=== PATIENT | female | born 1955 | race Caucasian/White ===

== ENCOUNTER 2017-04-14 17:41 | Inpatient (IN) | payer OTHER ==
[~2017-04-14] VITALS: Ht 152.4 cm; Wt 75.0 kg
[2017-04-14] VITALS (10 sets, daily range): BP systolic 132–183; BP diastolic 75–97; PULSE 71–85; RESP 16–20; TEMP 97.8; O2SAT 94–100
[2017-04-14] MEDS ORDERED: LISI40TA PO (18:26)
[2017-04-14] MEDS ORDERED: HYDR12.56 PO (18:26)
--- NOTE | 2017-04-14 18:55 | PD ---
HPI Chief Complaint: Chest Pain Time Seen by Provider: 18:24 Travel History International Travel<30 days: No Contact w/Intl Traveler<30days: No Traveled to known affect area: No History of Present Illness HPI This patient complains of chest pain. Duration is 12 hours. Severity is moderate. Symptoms are not exertional. She has central sternal pressure and heaviness. No alleviating factors. Symptoms have no exacerbating factors. She denies history of cardiac disease and never had stress testing. [facility]LY [facility] Past Medical History Anxiety: Yes Hypertension: Yes Influenza Vaccination: No Past Surgical History Genitourinary Surgery: Yes (PROLAPSED BLADDER REPAIR) Social History Alcohol Use: No Tobacco Use: No Substance Use: No Allergies-Medications (Allergen,Severity, Reaction): Coded Allergies: erythromycin base (Verified Allergy, Unknown, 04/14/17) Reported Meds & Prescriptions Reported Meds & Active Scripts Active Reported Hydrochlorothiazide 12.5 Mg Tab 12.5 Mg PO DAILY Lisinopril 40 Mg Tab 40 Mg PO DAILY Review of Systems General / Constitutional: No: Fever Eyes: No: Visual changes HENT: No: Headaches Cardiovascular: Positive: Chest Pain or Discomfort Respiratory: No: Shortness of Breath Gastrointestinal: No: Abdominal Pain Genitourinary: No: Dysuria Musculoskeletal: No: Pain Skin: No Rash Neurologic: No: Weakness Psychiatric: Positive: Anxiety, No: Depression Endocrine: No: Polydipsia Hematologic/Lymphatic: No: Easy Bruising Physical Exam Narrative GENERAL: Well-nourished, well-developed patient in no apparent distress. SKIN: Focused skin assessment reveals no rash and nodules. Skin is Warm and dry. HEAD: Atraumatic. Normocephalic. EYES: Pupils equal and round. No scleral icterus. No injection or drainage. ENT: No nasal bleeding or discharge. Mucous membranes pink and moist. NECK: Trachea midline. No JVD. CARDIOVASCULAR: Regular rate and rhythm. No murmur appreciated. RESPIRATORY: No accessory muscle use. Clear to auscultation. Breath sounds equal bilaterally. GASTROINTESTINAL: Abdomen soft, non-tender, nondistended. Hepatic and splenic margins not palpable. MUSCULOSKELETAL: No obvious deformities. No clubbing. No cyanosis. No edema. NEUROLOGICAL: Awake and alert. No obvious cranial nerve deficits. Motor grossly within normal limits. Normal speech. PSYCHIATRIC: Appropriate mood and affect; insight and judgment normal. Data Data Last Documented VS Vital Signs Date Time Temp Pulse Resp B/P (MAP) Pulse Ox O2 Delivery O2 Flow Rate FiO2 04/14/17 18:46 78 18 170/87 (114) 99 Room Air 04/14/17 18:00 97.8 Orders Orders Electrocardiogram (04/14/17 18:53) Basic Metabolic Panel (Bmp) (04/14/17 18:53) Ckmb (Isoenzyme) Profile (04/14/17 18:53) Complete Blood Count With Diff (04/14/17 18:53) Prothrombin Time / Inr (Pt) (04/14/17 18:53) Act Partial Throm Time (Ptt) (04/14/17 18:53) Troponin I (04/14/17 18:53) Chest, Single Ap (04/14/17 18:53) Ecg Monitoring (04/14/17 18:53) Iv Access Insert/Monitor (04/14/17 18:53) Oximetry (04/14/17 18:53) Aspirin (Aspirin) (04/14/17 19:00) Sodium Chloride 0.9% Flush (Ns Flush) (04/14/17 19:00) MDM Medical Decision Making Medical Screen Exam Complete: Yes Emergency Medical Condition: Yes Medical Record Reviewed: Yes Differential Diagnosis Differential diagnosis includes AR, angina, pericarditis, pleurisy, GERD, anxiety. Narrative Course I have reviewed the patient's electronic medical record. I've ordered a chest pain workup I reviewed her EKG which shows sinus rhythm but no ST elevation or ectopy Case checked out to Dr. Dunham. Likely will be a chest pain center patient given her discomfort and history of hypertension Silver Rowland MD Apr 14, 2017 18:55
[2017-04-14] MEDS ORDERED: ASPIRIN 325 MG TAB PO ONE (19:00)
[2017-04-14] MEDS ORDERED: SODIUM CHLORIDE 0.9% FLUSH 10 ML FLUSH IVF PRN ×2 (19:00→21:45)
[2017-04-14 19:26] LABS: AUTOMATED NEUTROPHIL # 8.4 TH/MM3 (1.8-7.7); BASOPHIL # 0.2 TH/MM3 (0-0.2); EOSINOPHIL # 0.1 TH/MM3 (0-0.4); EOSINOPHIL % 0.5 % (0.0-4.0); HEMATOCRIT 38.6 % (35.0-46.0); HEMO FLAGS DIFF FINAL; LYMPHOCYTE # 1.2 TH/MM3 (1.0-4.8); MEAN CELL VOLUME 88.2 FL (80.0-100.0); MEAN CORPUSCULAR HEMOGLOBIN 29.9 PG (27.0-34.0); MEAN CORPUSCULAR HGB CONC 33.9 % (32.0-36.0); MONO % 4.2 % (0.0-8.0); NEUT % 81.3 % (16.0-70.0); PLATELET COUNT 312 TH/MM3 (150-450); RED BLOOD COUNT 4.37 MIL/MM3 (4.00-5.30); RED CELL DISTRIBUTION WIDTH 12.3 % (11.6-17.2); WHITE BLOOD COUNT 10.3 TH/MM3 (4.0-11.0)
[2017-04-14 19:46] LABS: POTASSIUM 3.3 MEQ/L (3.5-5.1)
[2017-04-14 19:51] LABS: APTT (PATIENT) 29.9 SEC (24.3-30.1); PROTHROMBIN TIME - PATIENT 10.9 SEC (9.8-11.6)
[2017-04-14 20:09] LABS: CKMB 47.8 NG/ML (0.5-3.6)
--- NOTE | 2017-04-14 20:10 | RADRPT ---
EXAM DATE/TIME: 04/14/2017 18:59 [place] COMPARISON: No previous studies available for comparison. INDICATIONS : Chest pain. MEDICAL HISTORY : Hypertension. SURGICAL HISTORY : None. ENCOUNTER: Initial ACUITY: 1 day PAIN SCORE: 4/10 LOCATION: chest substernal. FINDINGS: The heart size is normal. There is mild increased density in the right medial base. The left lung dayna ears grossly clear. No effusion is seen. CONCLUSION: Possible mild medial right base consolidation. Sanju Lazar MD on April 14, 2017 at 20:08 Board Certified Radiologist. This report was verified electronically.
[2017-04-14] MEDS ORDERED: HEPARIN-D5W 25,000 U/250 ML 250 ML IV PRN (20:45)
[2017-04-14] MEDS ORDERED: HEPARIN SODIUM - IV 10,000 UNITS/10 ML VIAL IV PUSH ONE (20:45)
[2017-04-14] MEDS: NITROGLYCERIN 0.4 MG SL 25 TABS/BTL SL PRN ×3 (20:51→21:15)
[2017-04-14] MEDS: SODIUM CHLOR 0.9% 1000 ML INJ 1,000 ML IV SCH (20:51)
[2017-04-14 21:06] LABS: HEMATOCRIT 37.9 % (35.0-46.0); MEAN CORPUSCULAR HEMOGLOBIN 30.1 PG (27.0-34.0); MEAN CORPUSCULAR HGB CONC 34.6 % (32.0-36.0); PLATELET COUNT 315 TH/MM3 (150-450); RED BLOOD COUNT 4.36 MIL/MM3 (4.00-5.30); RED CELL DISTRIBUTION WIDTH 12.1 % (11.6-17.2); REVIEW FLAG FINAL; WHITE BLOOD COUNT 11.2 TH/MM3 (4.0-11.0)
[2017-04-14] MEDS ORDERED: NITROGLYCERIN-D5W 50 MG/250 ML 250 ML IV PRN (21:15)
--- NOTE | 2017-04-14 21:16 | PD ---
Physical Exam Date Seen by Provider: Apr 14, 2017 Time Seen by Provider: 19:45 Narrative Accepted in transfer of care from Dr. Rowland Data Data Last Documented VS Vital Signs Date Time Temp Pulse Resp B/P (MAP) Pulse Ox O2 Delivery O2 Flow Rate FiO2 04/14/17 21:20 18 04/14/17 21:00 78 143/75 (97) 94 Room Air 04/14/17 18:00 97.8 Orders Orders Electrocardiogram (04/14/17 18:53) Basic Metabolic Panel (Bmp) (04/14/17 18:53) Ckmb (Isoenzyme) Profile (04/14/17 18:53) Complete Blood Count With Diff (04/14/17 18:53) Prothrombin Time / Inr (Pt) (04/14/17 18:53) Act Partial Throm Time (Ptt) (04/14/17 18:53) Troponin I (04/14/17 18:53) Chest, Single Ap (04/14/17 18:53) Ecg Monitoring (04/14/17 18:53) Iv Access Insert/Monitor (04/14/17 18:53) Oximetry (04/14/17 18:53) Aspirin (Aspirin) (04/14/17 19:00) Sodium Chloride 0.9% Flush (Ns Flush) (04/14/17 19:00) CKMB (04/14/17 19:20) CKMB% (04/14/17 19:20) Nitroglycerin Sl (Nitrostat Sl) (04/14/17 20:45) Heparin Inj (Heparin Inj) (04/14/17 20:45) Heparin Inj (Heparin Inj) (04/15/17 02:45) Heparin Inj (Heparin Inj) (04/15/17 02:45) Heparin-D5w 25,000 U/250 Ml (Heparin-D5w (04/14/17 20:45) Act Partial Throm Time (Ptt) (04/14/17 20:36) Cbc No Diff, Includes Plts (04/14/17 20:36) Cbc No Diff, Includes Plts (04/17/17 06:00) Act Partial Throm Time (Ptt) (04/15/17 03:36) Occult Blood (Hemoccult) Stool (04/14/17 20:36) Sodium Chlor 0.9% 1000 Ml Inj (Ns 1000 M (04/14/17 20:45) NPO (04/14/17 20:38) Nitroglycerin-D5w 50 Mg/250 Ml (Nitrogly (04/14/17 21:15) Potassium Chloride (Kcl) (04/14/17 21:30) Admit To Inpatient (04/14/17 ) Vital Signs (Adult) Q4H (04/14/17 21:35) Manager Banking / Telemetry .CONTINUOUS (04/14/17 21:35) Diet Npo (04/15/17 Breakfast) Sodium Chloride 0.9% Flush (Ns Flush) (04/14/17 21:45) Sodium Chloride 0.9% Flush (Ns Flush) (04/15/17 09:00) Basic Metabolic Panel (Bmp) (04/15/17 06:00) Complete Blood Count With Diff (04/15/17 06:00) Creatine Kinase (Cpk) (04/15/17 01:00) Creatine Kinase (Cpk) (04/15/17 07:00) Troponin I (04/15/17 01:00) Troponin I (04/15/17 07:00) Electrocardiogram (04/15/17 01:00) Electrocardiogram (04/15/17 07:00) Naloxone Inj (Narcan Inj) (04/14/17 21:45) Inpatient Certification (04/14/17 ) Consult Cardiology (04/14/17 ) Admit Order (Ed Use Only) (04/14/17 ) ^ Saline Lock (04/14/17 21:44) Resp Oxygen Aric C Titrat 1-4 L (04/14/17 ) Notify Dr: Other (04/14/17 21:44) CKMB (04/15/17 00:37) CKMB% (04/15/17 00:37) Labs Laboratory Tests Test 04/14/17 19:20 04/14/17 20:47 White Blood Count 10.3 TH/MM3 11.2 TH/MM3 Red Blood Count 4.37 MIL/MM3 4.36 MIL/MM3 Hemoglobin 13.1 GM/DL 13.1 GM/DL Hematocrit 38.6 % 37.9 % Mean Corpuscular Volume 88.2 FL 87.0 FL Mean Corpuscular Hemoglobin 29.9 PG 30.1 PG Mean Corpuscular Hemoglobin Concent 33.9 % 34.6 % Red Cell Distribution Width 12.3 % 12.1 % Platelet Count 312 TH/MM3 315 TH/MM3 Mean Platelet Volume 7.6 FL 7.7 FL Neutrophils (%) (Auto) 81.3 % Lymphocytes (%) (Auto) 12.0 % Monocytes (%) (Auto) 4.2 % Eosinophils (%) (Auto) 0.5 % Basophils (%) (Auto) 2.0 % Neutrophils # (Auto) 8.4 TH/MM3 Lymphocytes # (Auto) 1.2 TH/MM3 Monocytes # (Auto) 0.4 TH/MM3 Eosinophils # (Auto) 0.1 TH/MM3 Basophils # (Auto) 0.2 TH/MM3 CBC Comment DIFF FINAL Differential Comment Prothrombin Time 10.9 SEC Prothromb Time International Ratio 1.0 RATIO Activated Partial Thromboplast Time 29.9 SEC 30.3 SEC Blood Urea Nitrogen 9 MG/DL Creatinine 0.57 MG/DL Random Glucose 95 MG/DL Calcium Level 8.1 MG/DL Sodium Level 134 MEQ/L Potassium Level 3.3 MEQ/L Chloride Level 99 MEQ/L Carbon Dioxide Level 26.0 MEQ/L Anion Gap 9 MEQ/L Estimat Glomerular Filtration Rate 107 ML/MIN Total Creatine Kinase 360 U/L Creatine Kinase MB 47.8 NG/ML Creatine Kinase MB % 13.3 % Troponin I 7.58 NG/ML [facility] Medical Record Reviewed: Yes Supervised Visit with DAMION: No Interpretation(s) EKG normal sinus rhythm rate 86 septal infarction QS in V1 V2 no acute ST elevation or injury pattern change or ectopy noted CBC & BMP Diagram 04/14/17 19:20 Calcium Level 8.1 L 04/14/17 20:47 Vital Signs Date Time Temp Pulse Resp B/P (MAP) Pulse Ox O2 Delivery O2 Flow Rate FiO2 04/14/17 19:58 82 20 154/88 (110) 100 04/14/17 19:00 82 20 100 04/14/17 18:46 78 18 170/87 (114) 99 Room Air 04/14/17 18:00 97.8 74 16 183/84 (117) 98 CK total 360, elevated CK-MB percent 13.3% elevated; troponin I 7.58 elevated Coagulation studies normal range CXR: FINDINGS: The heart size is normal. There is mild increased density in the right medial base. The left lung appears grossly clear. No effusion is seen. CONCLUSION: Possible mild medial right base consolidation. Sanju Lazar MD on April 14, 2017 at 20:08 Board Certified Radiologist. This report was verified electronically. Differential Diagnosis Accepted in transfer of care from Dr. Rowland, please refer to his dictation Narrative Course Accepted in transfer of care from Dr. Rowland;waitng on labs rec --educational program assistant candidate Trop and ckmb% elevated c/w [facility] patient c/o 8/10 cp administered nitro sublingual and heparin had received aspirin; ongoing pain initiated ntg infusion and discussed with cardiology --- cic to [facility] service card consult GENERAL: Well-developed well-nourished female in no acute distress or respiratory distress SKIN: Warm and dry. HEAD: Normocephalic. EYES: No scleral icterus. No injection or drainage. NECK: Supple, trachea midline. No JVD or lymphadenopathy. CARDIOVASCULAR: Regular rate and rhythm without murmurs, gallops, or rubs. RESPIRATORY: Breath sounds equal bilaterally. No accessory muscle use. GASTROINTESTINAL: Abdomen soft, non-tender, nondistended. MUSCULOSKELETAL: No cyanosis, or edema. Radial dorsalis pedis pulses 2+ to palpation BACK: Nontender without obvious deformity. No CVA tenderness. Good pain relief response to IV NTG resting comfortably Patient admit to [facility] to Dr Wasserman --consult to [place] Physician Communication Physician Communication discussed with Dr Marcano junior art director; discussed with Dr Wasserman Diagnosis Primary Impression: NSTEMI (non-ST elevated myocardial infarction) Additional Impression: HTN (hypertension) Admitting Information Admitting Physician Requests: Admit Lovely Dunham MD Apr 14, 2017 21:16
[2017-04-14] MEDS ORDERED: POTASSIUM CHLORIDE 20 MEQ CONTROLLED RELEASE TAB PO ONE (21:30)
[2017-04-14] MEDS ORDERED: NALOXONE HCL 0.4 MG/ML AMP IV PUSH PRN (21:45)
[2017-04-14] MEDS ORDERED: SODIUM CHLORIDE 0.9% FLUSH 10 ML FLUSH IV FLUSH PRN (21:45)
[2017-04-14 22:02] LABS: APTT (PATIENT) 30.3 SEC (24.3-30.1)
[2017-04-15] VITALS (18 sets, daily range): BP systolic 122–143; BP diastolic 60–81; PULSE 64–95; RESP 18–20; TEMP 97.7–98.5; O2SAT 95–97
[2017-04-15] MEDS ORDERED: MORPHINE SULFATE 4 MG/ML INJ IV PUSH ONE (01:30)
[2017-04-15] MEDS ORDERED: ONDANSETRON HCL 4 MG/2 ML VIAL IV PUSH ONE (01:30)
[2017-04-15] MEDS ORDERED: HEPARIN SODIUM - IV 10,000 UNITS/10 ML VIAL IV PUSH PRN ×2 (02:45)
--- NOTE | 2017-04-15 03:30 | HHI.HP ---
[facility] Primary Care Physician Non-Staff Admission Diagnosis NSTEMI Diagnoses: Travel History International Travel<30 Days: No Contact w/Intl Traveler <30 Da: No Traveled to Known Affected Are: No History of Present Illness History from patient, ER physician communication, and review of medical records. Patient reported that yesterday she woke up in a.m. and started having chest pain early in the morning. She states the pain did not go away as the day goes on. She reports this was the reason why she came to hospital. Reports midsternal pain with feeling like "3 tons on it". Denies any radiation of the pain or association. Reports she never had similar chest pains previously. She was given nitroglycerin in ER but states that the pain was not really going away despite repeated doses. This was also confirmed by ER physician. She was then placed on nitro drip with much less success. Finally, morphine IV was given and that somewhat relieved her pain. She reports because of the above chest pains, she actually drove herself to the hospital today. Did not call an ambulance. She states childbirth hurts less. She patient denies any recent prolonged travels. Her last travel was on March 29 by air to [place] from [place]. About 2 hours by plane. Patient initially presented to [place] emergency room. Workup there revealed elevated troponin in the range of 7.5. Patient's case was discussed with insole presser information security systems instructor by ER physician. She was started on heparin drip and nitroglycerin drip and transferred to the main hospital for further care. Apart from the above, patient denies any recent fever/cough/shortness of breath/ nausea/vomiting/diarrhea/urinary burning or pain on urination. She denies any hematemesis/hematochezia/melena/hematuria. Denies any dizziness/syncopal episodes. Review of Systems Except as stated in HPI: all other systems reviewed are Neg Past Family Social History Past Medical History htn Past Surgical History cystocele repair vocal cord polyps removed wisdom teeth Reported Medications remembers her meds Allergies: Coded Allergies: erythromycin base (Verified Allergy, Unknown, 04/14/17) Family History father- heart problem and dm paternal grandmother- also cad, dm Social History never smoked social drinker no drugs just visiting here from [facility] for mom and brother Physical Exam Vital Signs Vital Signs Date Time Temp Pulse Resp B/P (MAP) Pulse Ox O2 Delivery O2 Flow Rate FiO2 04/15/17 02:37 70 16 125/68 (87) 95 04/15/17 00:27 18 04/15/17 00:22 72 132/79 04/14/17 23:50 71 18 132/79 (96) 94 Room Air 04/14/17 22:00 74 18 143/75 (97) 95 Room Air 04/14/17 21:57 97 21 04/14/17 21:20 18 04/14/17 21:00 78 18 143/75 (97) 94 Room Air 04/14/17 20:55 85 20 150/81 (104) 94 Room Air 04/14/17 20:49 78 20 159/91 (113) 95 Room Air 04/14/17 20:37 74 20 170/97 (121) 98 Room Air 174/92 (119) 04/14/17 19:58 82 20 154/88 (110) 100 04/14/17 19:00 82 20 100 04/14/17 18:46 78 18 170/87 (114) 99 Room Air 04/14/17 18:00 97.8 74 16 183/84 (117) 98 Physical Exam GENERAL: This is a well-nourished, well-developed patient, in no apparent distress. SKIN: No rashes, ecchymoses or lesions. Cool and dry. HEAD: Atraumatic. Normocephalic. No temporal or scalp tenderness. EYES: No scleral icterus. No injection or drainage. ENT: Nose without bleeding, purulent drainage or septal hematoma. . Airway patent. NECK: Trachea midline. No JVD CARDIOVASCULAR: Regular rate and rhythm without murmurs, gallops, or rubs. RESPIRATORY: Clear to auscultation. Breath sounds equal bilaterally. No wheezes , rales, or rhonchi. GASTROINTESTINAL: Abdomen soft, non-tender, nondistended. No guarding. MUSCULOSKELETAL: Extremities without clubbing, cyanosis, or edema.. No calf tenderness. NEUROLOGICAL: Awake and alert. Motor and sensory grossly within normal limits. Normal speech. Laboratory Laboratory Tests Test 04/14/17 19:20 04/14/17 20:47 04/15/17 00:37 White Blood Count 10.3 11.2 Red Blood Count 4.37 4.36 Hemoglobin 13.1 13.1 Hematocrit 38.6 37.9 Mean Corpuscular Volume 88.2 87.0 Mean Corpuscular Hemoglobin 29.9 30.1 Mean Corpuscular Hemoglobin Concent 33.9 34.6 Red Cell Distribution Width 12.3 12.1 Platelet Count 312 315 Mean Platelet Volume 7.6 7.7 Neutrophils (%) (Auto) 81.3 Lymphocytes (%) (Auto) 12.0 Monocytes (%) (Auto) 4.2 Eosinophils (%) (Auto) 0.5 Basophils (%) (Auto) 2.0 Neutrophils # (Auto) 8.4 Lymphocytes # (Auto) 1.2 Monocytes # (Auto) 0.4 Eosinophils # (Auto) 0.1 Basophils # (Auto) 0.2 CBC Comment DIFF FINAL Differential Comment Prothrombin Time 10.9 Prothromb Time International Ratio 1.0 Activated Partial Thromboplast Time 29.9 30.3 Blood Urea Nitrogen 9 Creatinine 0.57 Random Glucose 95 Calcium Level 8.1 Sodium Level 134 Potassium Level 3.3 Chloride Level 99 Carbon Dioxide Level 26.0 Anion Gap 9 Estimat Glomerular Filtration Rate 107 Total Creatine Kinase 360 486 Creatine Kinase MB 47.8 63.0 Creatine Kinase MB % 13.3 13.0 Troponin I 7.58 12.20 Result Diagram: 04/14/17204604/14/171919 Imaging Last 48 hours Impressions Chest X-Ray 04/14/171852 Signed Impressions: Service Date/Time: Friday, April 14, 2017 18:59 - CONCLUSION: Possible mild medial right base consolidation. Sanju Lazar MD Caprini VTE Risk Assessment Caprini VTE Risk Assessment: Mod/High Risk (score >= 2) Caprini Risk Assessment Model Point Value = 1 Point Value = 2 Point Value = 3 Point Value = 5 Age 41-60 Minor surgery BMI > 25 kg/m2 Swollen legs Varicose veins or History of unexplained or recurrent spontaneous Oral contraceptives or hormone replacement Sepsis (< 1 month) Serious lung disease, including pneumonia (< 1 month) Abnormal pulmonary function Acute myocardial infarction Congestive heart failure (< 1 month) History of inflammatory bowel disease Medical patient at bed rest Age 61-74 Arthroscopic surgery Major open surgery (> 45 min) Laparoscopic surgery (> 45 min) Malignancy Confined to bed (> 72 hours) Immobilizing plaster cast Central venous access Age >= 75 History of VTE Family history of VTE Factor V Leiden Prothrombin [id number] Lupus anticoagulant Anticardiolipin antibodies Elevated serum homocysteine Heparin-induced thrombocytopenia Other congenital or acquired thrombophilia Stroke (< 1 month) Elective arthroplasty Hip, pelvis, or leg fracture Acute spinal cord injury (< 1 month) Prophylaxis Regimen Total Risk Factor Score Risk Level Prophylaxis Regimen 0-1 Low Early ambulation 2 Moderate Order ONE of the following: *Sequential Compression Device (SCD) *Heparin 5000 units SQ BID 3-4 Higher Order ONE of the following medications: *Heparin 5000 units SQ TID *Enoxaparin/Lovenox 40 mg SQ daily (WT < 150 kg, CrCl > 30 mL/min) *Enoxaparin/Lovenox 30 mg SQ daily (WT < 150 kg, CrCl > 10-29 mL/min) *Enoxaparin/Lovenox 30 mg SQ BID (WT < 150 kg, CrCl > 30 mL/min) AND/OR *Sequential Compression Device (SCD) 5 or more Highest Order ONE of the following medications: *Heparin 5000 units SQ TID (Preferred with Epidurals) *Enoxaparin/Lovenox 40 mg SQ daily (WT < 150 kg, CrCl > 30 mL/min) *Enoxaparin/Lovenox 30 mg SQ daily (WT < 150 kg, CrCl > 10-29 mL/min) *Enoxaparin/Lovenox 30 mg SQ BID (WT < 150 kg, CrCl > 30 mL/min) AND *Sequential Compression Device (SCD) Assessment and Plan Assessment and Plan Impression: Non-ST elevation ND Dyspnea- related to chest pain per patient's report. Clinical suspicion for PE is low. We'll check d-dimer. History of hypertension Plan: Serial cardiac enzymes and EKGs. Continue nitro drip. Titrate to chest pain level. Continue heparin drip. Cardiology consult Nothing by mouth for angiogram in a.m. For now, will hold home antihypertensive medications as she is on nitro drip. Aspirin full dose. DVT prophylaxis on heparin drip. Discussed Condition With patient, ER MD , nursing staff Physician Certification 2 Midnight Certification Type: Admission for Inpatient Services Order for Inpatient Services The services are ordered in accordance with Medicare regulations or non- Medicare payer requirements, as applicable. In the case of services not specified as inpatient-only, they are appropriately provided as inpatient services in accordance with the 2-midnight benchmark. Estimated LOS (days): 2 days is the estimated time the patient will need to remain in the hospital, assuming treatment plan goals are met and no additional complications. Post-Hospital Plan: Home Natan Wasserman MD Apr 15, 2017 03:30
[2017-04-15 04:13] LABS: APTT (PATIENT) 78.1 SEC (24.3-30.1)
[2017-04-15 04:31] LABS: BICARBONATE 26.5 MEQ/L (21.0-32.0); POTASSIUM 3.5 MEQ/L (3.5-5.1)
[2017-04-15] MEDS: MORPHINE SULFATE 4 MG/ML INJ IV PUSH PRN ×2 (05:19→08:08)
[2017-04-15] MEDS: SODIUM CHLORIDE 0.9% FLUSH 10 ML FLUSH IV FLUSH SCH ×2 (08:10→21:51)
--- NOTE | 2017-04-15 08:15 | EKG ---
Date Performed: 04/14/2017 Time Performed: 17:35:51 PTAGE: 61 years EKG: Sinus rhythm SEPTAL MYOCARDIAL INFARCTION ABNORMAL ECG NO PREVIOUS TRACING DOCTOR: Marva Ho Interpretating Date/Time 04/15/2017 08:12:16
--- NOTE | 2017-04-15 08:17 | EKG ---
Date Performed: 04/15/2017 Time Performed: 01:16:26 PTAGE: 61 years EKG: Sinus rhythm NONSPECIFIC T-WAVE Changes Baseline Artifact BORDERLINE ECG PREVIOUS TRACING : 04/14/2017 17.35 Compared to prior EKG, patient no longer meets criteria for septal myocardial infarction - age indeterminate. DOCTOR: Marva Ho Interpretating Date/Time 04/15/2017 08:14:01
[2017-04-15] MEDS: SODIUM CHLOR 0.9% 1000 ML INJ 1,000 ML IV SCH ×2 (08:25→22:00)
[2017-04-15] MEDS ORDERED: SODIUM CHLORIDE 0.9% FLUSH 10 ML FLUSH IV FLUSH SCH (09:00)
[2017-04-15] MEDS ORDERED: HEPARIN-NS/PF INJ 1,000 ML ONE (09:10)
[2017-04-15] MEDS ORDERED: MIDAZOLAM HCL 2 MG/2 ML VIAL ONE (09:10)
[2017-04-15] MEDS ORDERED: VERAPAMIL HCL 5 MG/2 ML VIAL ONE (09:13)
[2017-04-15] MEDS ORDERED: NITROGLYCERIN INJ 5 ML ONE (09:13)
[2017-04-15] MEDS ORDERED: HEPARIN SODIUM - IV 10,000 UNITS/10 ML VIAL ONE (09:13)
--- NOTE | 2017-04-15 09:21 | MB ---
cc: JUAN PRABHAKAR DO DATE OF CONSULTATION April 15, 2017 REASON FOR CONSULTATION NSTEMI. HISTORY OF PRESENT ILLNESS Zoey Bullock is a pleasant 61-year-old female who presented to [facility] on April 14, 2017, due to chest pain. She is down from [place] visiting her mother and woke up yesterday morning with pain in the center of her chest. It felt like she had an elephant sitting on her chest. It does not seem to radiate. She has never had this episode before. She states that her breathing has been somewhat off since having it. In seeing her this morning she is currently on a heparin drip and a nitroglycerin drip which has been titrated up due to chest pain. PAST MEDICAL HISTORY Hypertension. PAST SURGICAL HISTORY 1. Cystocele repair. 2. Vocal cord polyp removed. 3. [place] tooth removal. ALLERGIES ERYTHROMYCIN. MEDICATIONS 1. Lisinopril 40 mg daily. 2. Hydrochlorothiazide 12.5 mg daily. SOCIAL HISTORY The patient drinks socially. Denies tobacco or drug abuse. She lives in [place] but visiting her mother here. FAMILY HISTORY Father had a history of heart problems and diabetes. Denies sudden cardiac within the family. REVIEW OF SYSTEMS 14-systems were reviewed including osteopathic pertinent positives and negatives above, otherwise negative. PHYSICAL EXAMINATION VITAL SIGNS: Temperature 97.7, heart rate 64, blood pressure 104/57, respirations 16, pulse ox 95% on room air. GENERAL: The patient appears well, in no acute distress, alert, awake and oriented x 3. Extraocular muscles intact. Mucous membranes moist. NECK: Supple. No JVD at 45 degrees. No carotid bruits heard bilaterally. Carotid upstroke is brisk in nature. HEART: Regular rate and rhythm. Positive first and second heart sounds with no noted murmurs, gallops or rubs. LUNGS: Clear to auscultation bilaterally. No wheezes, rales or rhonchi. ABDOMEN: Soft, nontender, nondistended. No organomegaly noted. EXTREMITIES: Show no clubbing, cyanosis or edema. Femoral and distal pulses intact bilaterally. NEUROLOGICALLY: No focal deficits. SKIN: Warm, dry and intact. OSTEOPATHICALLY: No kyphoscoliosis, lordosis or paraspinal tender points. LABORATORY FINDINGS Hemoglobin 13.1, hematocrit 37.9, platelets 315. Potassium 3.5, BUN 8, creatinine 0.58. Troponin 12.2. ELECTROCARDIOGRAM (April 15, 2017 at 06:35) Sinus rhythm, no acute ST-T wave changes. IMPRESSIONS 1. Chest pain concerning for coronary insufficiency. 2. NSTEMI. 3. History of hypertension. RECOMMENDATIONS 1. Zoey Bullock appears to be presenting with chest pain concerning for coronary insufficiency and was found to have an elevated troponin. Because of this she was recommended cardiac catheterization. Risks, benefits and alternatives were explained to her and she consented as such. We will plan on doing it this morning from a right radial standpoint. 2. We will check a 2-D echo to look at her overall left ventricular function, cardiac structure and possible valvopathies. 3. Further recommendations will be made after coronary visualization. Thank you for allowing me to see Zoey Bullock. If there are any questions, please do not hesitate to call. Juan Prabhakar DO VGP/SSB /9:00 AM /9:08 AM
[2017-04-15] MEDS ORDERED: ASPIRIN EC 325 MG TABEC PO ONE (10:00)
[2017-04-15] MEDS ORDERED: HEPARIN-NS/PF INJ 500 ML ONE (10:11)
[2017-04-15] MEDS ORDERED: TICAGRELOR 90 MG TAB PO ONE ×2 (10:33→11:12)
[2017-04-15] MEDS ORDERED: ASPIRIN 81 MG CHEW TAB ONE (10:33)
[2017-04-15] MEDS ORDERED: ATROPINE SULFATE 1 MG/ML VIAL IV PUSH PRN (10:45)
[2017-04-15] MEDS ORDERED: MISC INFORMATION XX ONE (10:45)
[2017-04-15] MEDS ORDERED: oxyCODONE/ACETAMINOPHEN 10 MG/325 MG TAB PO PRN (10:45)
[2017-04-15] MEDS ORDERED: SODIUM CHLOR 0.9% 250 ML INJ 250 ML IV PRN (10:45)
[2017-04-15] MEDS ORDERED: ACETAMINOPHEN 325 MG TAB PO PRN (10:45)
[2017-04-15] MEDS ORDERED: oxyCODONE/ACETAMINOPHEN 5 MG/325 MG TAB PO PRN (10:45)
[2017-04-15] MEDS ORDERED: MORPHINE SULFATE 4 MG/ML INJ IV PUSH PRN (10:45)
--- NOTE | 2017-04-15 11:09 | MA ---
cc: JUAN PRABHAKAR DO DATE 04/15/2017 PROCEDURE Left heart catheterization, coronary angiogram, bare metal stent (2 x 15) to the diagonal, moderate sedation 60 minutes. PREPROCEDURE DIAGNOSIS Chest pain concerning for coronary insufficiency ([place] anginal score four), NSTEMI POSTPROCEDURE DIAGNOSIS NSTEMI status post bare metal stent (2 x 15) to the diagonal MEDICATIONS 1. Versed 0.5 mg 2. Fentanyl 75 mcg 3. Heparin 50-100 units 4. Brilinta 180 mg 5. Aspirin 81 mg CONTRAST 125 cc FLUOROSCOPY 9.6 minutes MODERATE SEDATION 60 minutes ESTIMATED BLOOD LOSS 10 CC PROCEDURAL SUMMARY Zoey Bullock is a pleasant 61-year-old female who presented to [facility] due to chest pain. She was found to have an elevated troponin and recommended cardiac catheterization. The risks, benefits and alternatives were explained to her and she consented as such. She was brought to the lab and prepped in the usual sterile fashion. I attempted to access to right radial artery, but was unable to and this was aborted due to spasm. The right femoral artery was accessed using a micro puncture needle and modified Seldinger technique and placement of a 5-Fijian sheath. This was easily aspirated and flushed. A JR-4 was advanced to the ascending aorta and across the aortic valve for measurement of left ventricular pressure. This was pulled back across the aortic valve showing no significant gradient of aortic stenosis. JR-4 was used for selective angiography of the right coronary artery. This was exchanged out for a JL-4 which was used for selective angiography of the left coronary artery. Because of the significant disease in the diagonal, it was felt that this needed to be intervened on. Please see interventional notes below for further information. Postprocedure, femoral sheath was sewn in place with a plan to pull once ACTs were appropriate. Nitro drip was turned off. The patient left the carpenter labor supervisor cardiovascularly stable. FINDINGS Left main normal sized vessel with adequate reflux. 10% disease at the distal portion. Bifurcates into an LAD and circumflex. LAD normal-size vessel with mild tortuosity distally, 20-30% diffuse distally. It gives off three major diagonals with the first diagonal being subtotally occluded. Left circumflex is a normal sized vessel, nondominant in nature. It gives off one major obtuse marginal with 10-20% disease in the midportion. RCA normal-size vessel, dominant in nature. 30-40% lesion in the proximal portion at the initial bend. LVEDP 16. INTERVENTION The patient was given heparin as an additional anticoagulant. An EBU 3.5 catheter was engaged in the left main. A BMW wire was then advanced into the distal diagonal. A Compliant balloon (1.5 x 8) was then inflated over the lesion. This was exchanged out for a mini Vision bare metal stent (2 x 15) which was then inflated over the lesion. A noncompliant balloon (2 x 12) was then used to post dilate the stent. The wire was removed and final angiography shows a well opposed stent with no perforations or dissections. IMPRESSION 1. NSTEMI 1. Chest pain concerning for coronary insufficiency. 2. Coronary artery disease status post bare metal stent (2 x 15) to the diagonal. 3. History of hypertension. RECOMMENDATIONS 1. Ms. Bullock presented with an NSTEMI and was found to have significant disease in her diagonal and underwent stenting with a bare metal stent. She will be placed on aspirin and Brilinta therapy and this should be recommended for least 12 months as she presented with an NSTEMI. 2. We will check a 2-D echo to look at her overall left ventricular function, cardiac structure and possible valvopathies. 3. We will plan for her to stay in the hospital for 48 hours after initial admission due to her NSTEMI. 4. We will attempt to place her on beta lashell, statin and DONIS inhibitor therapy. 5. Upon returning back to [place], she should find a mapping supervisor to follow up with. 6. Further recommendations will be based on the hospital course. Thank you for allowing me to see Zoey Bullock. If there are any questions, please do not hesitate to call. Juan Prabhakar DO VGP/DJL /10:41 AM /10:58 AM
[2017-04-15] MEDS ORDERED: IOHEXOL 350 MG/ML 100 ML BTL (for Cath Lab) OTHER ONE (13:33)
[2017-04-15] MEDS ORDERED: IOHEXOL 350 MG/ML 50 ML BTL (for Cath Lab) OTHER ONE (13:33)
[2017-04-15 14:49] LABS: AUTOMATED NEUTROPHIL # 9.6 TH/MM3 (1.8-7.7); BASOPHIL % 0.2 % (0.0-2.0); EOSINOPHIL % 0.2 % (0.0-4.0); HEMATOCRIT 34.8 % (35.0-46.0); HEMO FLAGS DIFF FINAL; LYMPH % 9.2 % (9.0-44.0); MEAN CORPUSCULAR HEMOGLOBIN 30.1 PG (27.0-34.0); MEAN CORPUSCULAR HGB CONC 33.8 % (32.0-36.0); MONO % 5.9 % (0.0-8.0); NEUT % 84.5 % (16.0-70.0); PLATELET COUNT 281 TH/MM3 (150-450); RED BLOOD COUNT 3.91 MIL/MM3 (4.00-5.30); RED CELL DISTRIBUTION WIDTH 13.1 % (11.6-17.2); WHITE BLOOD COUNT 11.3 TH/MM3 (4.0-11.0)
[2017-04-15 14:54] LABS: APTT (PATIENT) 39.9 SEC (24.3-30.1)
[2017-04-15 15:44] LABS: CKMB 51.1 NG/ML (0.5-3.6)
[2017-04-15] MEDS: ONDANSETRON HCL 4 MG/2 ML VIAL IV PUSH PRN ×2 (16:00→21:54)
--- NOTE | 2017-04-15 16:43 | EKG ---
Date Performed: 04/15/2017 Time Performed: 06:35:32 PTAGE: 61 years EKG: Sinus rhythm . Compared to prior tracing no significant change Normal ECG PREVIOUS TRACING : 04/15/2017 01.16 DOCTOR: Marva Ho Interpretating Date/Time 04/15/2017 16:40:24
--- NOTE | 2017-04-15 18:02 | ECHRPT ---
Indication: CORONARY ATHEROSCLEROSIS CONCLUSIONS The left ventricular systolic function is normal with an estimated ejection fraction in the range of 55-60%. Doppler parameters are consistent with impaired left ventricular relaxtion (grade 1 diastolic dysfun ction). Mild mitral valve regurgitation. There is trace tricuspid valve regurgitation. BP: 134 / 68 HR: Rhythm: Sinus MEASUREMENTS (Male / Female) Normal Values Technical Quality:Fair 2D ECHO LV Diastolic Diameter PLAX 4.8 cm 4.2 - 5.9 / 3.9 - 5.3 cm LV Systolic Diameter PLAX 3.4 cm IVS Diastolic Thickness 0.8 cm 0.6 - 1.0 / 0.6 - 0.9 cm LVPW Diastolic Thickness 0.8 cm 0.6 - 1.0 / 0.6 - 0.9 cm LV Relative Wall Thickness 0.3 LVOT Diameter 2.1 cm Aortic Root Diameter 2.8 cm LA Systolic Diameter LX 2.8 cm 3.0 - 4.0 / 2.7 - 3.8 cm M-MODE AV Cusp Separation MM 2.0 cm DOPPLER AV Peak Velocity 109.0 cm/s AV Peak Gradient 4.8 mmHg AV Mean Gradient 3.0 mmHg AV Velocity Time Integral 24.7 cm LVOT Peak Velocity 80.5 cm/s LVOT Peak Gradient 2.6 mmHg LVOT Velocity Time Integral 17.6 cm AV Area Cont Eq vti 2.5 cm AV Area Cont Eq pk 2.6 cm Mitral E Point Velocity 79.0 cm/s Mitral A Point Velocity 104.0 cm/s Mitral E to A Ratio 0.8 LV E' Lateral Velocity 12.9 cm/s Mitral E to LV E' Lateral Ratio 6.1 LV E' Septal Velocity 8.8 cm/s Mitral E to LV E' Septal Ratio 9.0 TR Peak Velocity 315.0 cm/s TR Peak Gradient 39.7 mmHg Right Atrial Pressure 10.0 mmHg Pulmonary Artery Systolic Pressu 49.7 mmHg Right Ventricular Systolic Press 49.7 mmHg PV Peak Velocity 54.1 cm/s PV Peak Gradient 1.2 mmHg FINDINGS LEFT VENTRICLE Normal left ventricular size. Wall thickness is normal. The left ventricular systolic function is normal with an estimated ejection fraction in the range of 55-60%. Hypokinetic mid-anterolateral wall motion. Doppler parameters are consistent with impaired left ventricular relaxtion (grade 1 diastolic dysfun ction). RIGHT VENTRICLE The right ventricular size is normal. LEFT ATRIUM The left atrial size is mildly dilated. RIGHT ATRIUM The right atrial size is normal. ATRIAL SEPTUM The interatrial septum not well visualized. AORTA The aortic root and proximal ascending aorta are normal in size on limited imaging. MITRAL VALVE Structurally normal mitral valve. Mild mitral valve regurgitation. No mitral valve stenosis. AORTIC VALVE Trileaflet aortic valve. No aortic valve stenosis. No aortic valve regurgitation. TRICUSPID VALVE There is trace tricuspid valve regurgitation. There is estimated moderate pulmonary hypertension present (range 50-60 mmHg). Structurally normal tricuspid valve. PULMONARY VALVE The pulmonary valve is not well visualized. VESSELS The inferior vena cava is normal in size. PERICARDIUM No pericardial effusion. Juan Frederick DO (Electronically Signed) Final Date:15 April 2017 18:01
[2017-04-15] MEDS: ATORVASTATIN 80 MG TAB PO SCH (21:51)
[2017-04-15] MEDS: METOPROLOL TARTRATE 25 MG TAB PO SCH (21:51)
[2017-04-16] VITALS (28 sets, daily range): BP systolic 124–156; BP diastolic 68–75; PULSE 60–96; RESP 18; TEMP 98–98.4; O2SAT 96–97
[2017-04-16 07:00] LABS: AUTOMATED NEUTROPHIL # 7.6 TH/MM3 (1.8-7.7); BASOPHIL % 0.4 % (0.0-2.0); EOSINOPHIL # 0.1 TH/MM3 (0-0.4); EOSINOPHIL % 0.9 % (0.0-4.0); HEMATOCRIT 33.1 % (35.0-46.0); HEMO FLAGS DIFF FINAL; LYMPH % 12.9 % (9.0-44.0); LYMPHOCYTE # 1.3 TH/MM3 (1.0-4.8); MEAN CORPUSCULAR HEMOGLOBIN 30.3 PG (27.0-34.0); MONO % 8.2 % (0.0-8.0); NEUT % 77.6 % (16.0-70.0); PLATELET COUNT 239 TH/MM3 (150-450); RED BLOOD COUNT 3.72 MIL/MM3 (4.00-5.30); RED CELL DISTRIBUTION WIDTH 13.3 % (11.6-17.2); WHITE BLOOD COUNT 9.7 TH/MM3 (4.0-11.0)
[2017-04-16 07:17] LABS: BICARBONATE 22.7 MEQ/L (21.0-32.0); POTASSIUM 3.6 MEQ/L (3.5-5.1)
[2017-04-16 07:21] LABS: HDL CHOLESTEROL 59.2 MG/DL (40.0-60.0)
[2017-04-16] MEDS: SODIUM CHLORIDE 0.9% FLUSH 10 ML FLUSH IV FLUSH SCH ×2 (09:00→20:48)
[2017-04-16] MEDS ORDERED: LISINOPRIL 5 MG TAB PO SCH (09:00)
[2017-04-16] MEDS ORDERED: ASPIRIN EC 325 MG TABEC PO SCH (09:00)
[2017-04-16] MEDS: ASPIRIN 81 MG CHEW TAB PO SCH (09:10)
[2017-04-16] MEDS: TICAGRELOR 90 MG TAB PO SCH ×2 (09:11→20:47)
[2017-04-16] MEDS: METOPROLOL TARTRATE 25 MG TAB PO SCH ×2 (09:11→20:47)
--- NOTE | 2017-04-16 09:56 | PD.CARD.PN ---
Subjective Subjective Remarks No events overnight No longer nauseated No chest pain Mild SOB Objective Medications Current Medications Medications (Trade) Dose Ordered Sig/Nelli Route Start Time Stop Time Status Last Admin (Nitrostat Sl) 0.4 mg Q5M PRN SL 04/14/17 20:45 04/14/17 21:15 (NS Flush) 2 ml UNSCH PRN IV FLUSH 04/14/17 21:45 (NS Flush) 2 ml BID IV FLUSH 04/15/17 09:00 04/15/17 21:51 (Narcan Inj) 0.4 mg UNSCH PRN IV PUSH 04/14/17 21:45 (Morphine Inj) 1 mg Q3H PRN IV PUSH 04/15/17 03:45 04/15/17 08:08 (Tylenol) 325 mg Q4H PRN PO 04/15/17 10:45 (Percocet 5-325 Mg) 1 tab Q4H PRN PO 04/15/17 10:45 (Percocet 10-325 Mg) 1 tab Q4H PRN PO 04/15/17 10:45 (Morphine Inj) 2 mg Q30M PRN IV PUSH 04/15/17 10:45 04/15/17 11:48 (Aspirin Chew) 81 mg DAILY PO 04/16/17 09:00 04/16/17 09:10 (Brilinta) 90 mg BID PO 04/16/17 09:00 04/16/17 09:11 (Atropine Inj) 0.5 mg UNSCH PRN IV PUSH 04/15/17 10:45 Sodium Chloride 250 ml @ 500 mls/hr ONCE PRN IV 04/15/17 10:45 04/16/17 10:44 (Zofran Inj) 4 mg Q4H PRN IV PUSH 04/15/17 10:45 04/15/17 21:54 (Lopressor) 12.5 mg BID PO 04/15/17 21:00 04/16/17 09:11 (Prinivil) 5 mg DAILY PO 04/16/17 09:00 04/16/17 09:11 (Lipitor) 80 mg HS PO 04/15/17 21:00 04/15/17 21:51 Vital Signs / I&O Vital Signs Date Time Temp Pulse Resp B/P (MAP) Pulse Ox O2 Delivery O2 Flow Rate FiO2 04/16/17 09:11 96 21 04/16/17 08:00 72 04/16/17 08:00 98.4 72 18 156/75 (102) 96 04/16/17 07:00 67 04/16/17 06:00 70 04/16/17 05:00 64 04/16/17 04:00 98.2 78 18 135/75 (95) 96 04/16/17 04:00 63 04/16/17 03:00 65 04/16/17 02:00 60 04/16/17 01:00 62 04/16/17 00:00 74 04/15/17 23:20 97.9 92 18 143/75 (97) 97 04/15/17 23:00 68 04/15/17 22:00 94 04/15/17 21:10 21 04/15/17 21:00 72 04/15/17 20:20 98.0 82 18 128/60 (82) 97 04/15/17 20:20 97 Room Air 04/15/17 20:00 82 04/15/17 19:00 70 04/15/17 18:00 67 04/15/17 17:00 68 04/15/17 16:00 98.2 65 20 122/62 (82) 95 04/15/17 16:00 68 04/15/17 16:00 96 Room Air 04/15/17 12:00 98.0 65 20 134/68 (90) 95 04/15/17 12:00 95 Room Air 04/15/17 11:00 65 I/O 04/15/17 04/15/17 04/15/17 04/16/17 04/16/17 04/16/17 07:00 15:00 23:00 07:00 15:00 23:00 Intake Total 1000 ml 1650 ml 740 ml Output Total 525 ml 150 ml Balance 1000 ml 1125 ml 590 ml Intake Oral 0 ml 40 ml 240 ml IV Total 1000 ml 1610 ml 500 ml Output Urine Total 525 ml 150 ml # Voids 2 # Bowel Movements 0 0 Physical Exam GENERAL: NAD, AAOx3 SKIN: Warm and dry. HEAD: Atraumatic. Normocephalic. EYES: Pupils equal and round. No scleral icterus. No injection or drainage. ENT: No nasal bleeding or discharge. Mucous membranes pink and moist. NECK: Trachea midline. No JVD. CARDIOVASCULAR: Regular rate and rhythm. No murmurs noted RESPIRATORY: No accessory muscle use. Mild rales at the bases GASTROINTESTINAL: Abdomen soft, non-tender, nondistended. Hepatic and splenic margins not palpable. MUSCULOSKELETAL: Extremities without clubbing, cyanosis, or edema. No obvious deformities. Right radial no hematoma, neurovascularly intact distally. Right femoral no hematoma, pulses intact distally NEUROLOGICAL: Awake and alert. No obvious cranial nerve deficits. Motor grossly within normal limits. Five out of 5 muscle strength in the arms and legs. Normal speech. PSYCHIATRIC: Appropriate mood and affect; insight and judgment normal. Laboratory Laboratory Tests Test 04/15/17 14:20 04/16/17 05:56 White Blood Count 11.3 TH/MM3 9.7 TH/MM3 Red Blood Count 3.91 MIL/MM3 3.72 MIL/MM3 Hemoglobin 11.8 GM/DL 11.2 GM/DL Hematocrit 34.8 % 33.1 % Mean Corpuscular Volume 89.0 FL 89.0 FL Mean Corpuscular Hemoglobin 30.1 PG 30.3 PG Mean Corpuscular Hemoglobin Concent 33.8 % 34.0 % Red Cell Distribution Width 13.1 % 13.3 % Platelet Count 281 TH/MM3 239 TH/MM3 Mean Platelet Volume 8.3 FL 8.3 FL Neutrophils (%) (Auto) 84.5 % 77.6 % Lymphocytes (%) (Auto) 9.2 % 12.9 % Monocytes (%) (Auto) 5.9 % 8.2 % Eosinophils (%) (Auto) 0.2 % 0.9 % Basophils (%) (Auto) 0.2 % 0.4 % Neutrophils # (Auto) 9.6 TH/MM3 7.6 TH/MM3 Lymphocytes # (Auto) 1.0 TH/MM3 1.3 TH/MM3 Monocytes # (Auto) 0.7 TH/MM3 0.8 TH/MM3 Eosinophils # (Auto) 0.0 TH/MM3 0.1 TH/MM3 Basophils # (Auto) 0.0 TH/MM3 0.0 TH/MM3 CBC Comment DIFF FINAL DIFF FINAL Differential Comment Activated Partial Thromboplast Time 39.9 SEC Total Creatine Kinase 443 U/L Creatine Kinase MB 51.1 NG/ML Creatine Kinase MB % 11.5 % Troponin I 12.90 NG/ML Blood Urea Nitrogen 6 MG/DL Creatinine 0.45 MG/DL Random Glucose 90 MG/DL Calcium Level 7.9 MG/DL Sodium Level 134 MEQ/L Potassium Level 3.6 MEQ/L Chloride Level 103 MEQ/L Carbon Dioxide Level 22.7 MEQ/L Anion Gap 8 MEQ/L Estimat Glomerular Filtration Rate 141 ML/MIN Triglycerides Level 91 MG/DL Cholesterol Level 137 MG/DL LDL Cholesterol 60 MG/DL HDL Cholesterol 59.2 MG/DL Cholesterol/HDL Ratio 2.31 RATIO Assessment and Plan Problem List: (1) NSTEMI (non-ST elevated myocardial infarction) ICD Codes: I21.4 - Non-ST elevation (NSTEMI) myocardial infarction Status: Acute (2) CAD (coronary artery disease) ICD Codes: I25.10 - Atherosclerotic heart disease of [place] coronary artery without angina pectoris Status: Acute (3) HTN (hypertension) ICD Codes: I10 - Essential (primary) hypertension Status: Acute Assessment and Plan 1) NSTEMI s/p BMS (2x15) to diagonal Residual 30-40% prox RCA disease Con't ASA/Brilinta/BB/Statin/DONIS-I 2) SOB Appears mildly fluid overloaded Lasix x1 dose 3) EF 55-60%, DD1, mild MR 4) HTN 5) Possible DC in 24 hours Will see cardiology in [facility]. when back Discussed free 30 days of Brilinta, will check on prices of refills, if too expensive will call her PCP to change to Plavix Problem Qualifiers (1) CAD (coronary artery disease): Juan Frederick DO Apr 16, 2017 09:56
[2017-04-16] MEDS ORDERED: FUROSEMIDE 40 MG/4 ML VIAL IV PUSH ONE (10:00)
--- NOTE | 2017-04-16 17:18 | HHI.PR ---
Subjective Remarks Nursing reports no acute deterioration since last night. Patient denies any shortness of breath or chest pain from bed ambulating to the bathroom. Objective Vital Signs Date Time Temp Pulse Resp B/P (MAP) Pulse Ox O2 Delivery O2 Flow Rate FiO2 04/16/17 17:00 68 04/16/17 16:00 98.0 88 18 124/68 (86) 96 04/16/17 16:00 68 04/16/17 15:00 72 04/16/17 14:00 84 04/16/17 13:00 81 04/16/17 12:00 88 04/16/17 11:14 98.2 94 18 132/72 (92) 96 04/16/17 11:00 94 04/16/17 10:00 72 04/16/17 09:11 96 21 04/16/17 09:00 70 04/16/17 08:00 72 04/16/17 08:00 98.4 72 18 156/75 (102) 96 04/16/17 07:00 67 04/16/17 06:00 70 04/16/17 05:00 64 04/16/17 04:00 98.2 78 18 135/75 (95) 96 04/16/17 04:00 63 04/16/17 03:00 65 04/16/17 02:00 60 04/16/17 01:00 62 04/16/17 00:00 74 04/15/17 23:20 97.9 92 18 143/75 (97) 97 04/15/17 23:00 68 04/15/17 22:00 94 04/15/17 21:10 21 04/15/17 21:00 72 04/15/17 20:20 98.0 82 18 128/60 (82) 97 04/15/17 20:20 97 Room Air 04/15/17 20:00 82 04/15/17 19:00 70 04/15/17 18:00 67 I/O 04/15/17 04/15/17 04/15/17 04/16/17 04/16/17 04/16/17 07:00 15:00 23:00 07:00 15:00 23:00 Intake Total 1000 ml 1650 ml 740 ml 925 ml Output Total 525 ml 150 ml 1560 ml Balance 1000 ml 1125 ml 590 ml -635 ml Intake Oral 0 ml 40 ml 240 ml 925 ml IV Total 1000 ml 1610 ml 500 ml Output Urine Total 525 ml 150 ml 1560 ml # Voids 2 # Bowel Movements 0 0 0 Result Diagram: 04/16/17 0556 04/16/17 0556 Objective Remarks No acute distress Heart sounds are regular rhythm, no murmurs Unlabored breathing, clear to auscultation bilaterally A/P Problem List: (1) NSTEMI (non-ST elevated myocardial infarction) ICD Code: I21.4 - Non-ST elevation (NSTEMI) myocardial infarction Status: Acute (2) HTN (hypertension) ICD Code: I10 - Essential (primary) hypertension Status: Acute Assessment and Plan NSTEMI secondary to occlusion of diagonal - status post PCI with bare metal stent Continue aspirin, Brilinta, lisinopril, Lopressor Reviewed renal function which is stable Discussed case with cardiology, anticipate discharge in a.Hari Mon MD Apr 16, 2017 17:18
[2017-04-16] MEDS: ATORVASTATIN 80 MG TAB PO SCH (20:48)
[2017-04-17] VITALS (17 sets, daily range): BP systolic 118–141; BP diastolic 65–76; PULSE 62–107; RESP 16–18; TEMP 97.8–98.3; O2SAT 98–99
[2017-04-17 06:19] LABS: HEMATOCRIT 32.9 % (35.0-46.0); MEAN CELL VOLUME 88.3 FL (80.0-100.0); MEAN CORPUSCULAR HEMOGLOBIN 31.2 PG (27.0-34.0); MEAN CORPUSCULAR HGB CONC 35.3 % (32.0-36.0); PLATELET COUNT 231 TH/MM3 (150-450); RED BLOOD COUNT 3.73 MIL/MM3 (4.00-5.30); RED CELL DISTRIBUTION WIDTH 12.7 % (11.6-17.2); REVIEW FLAG FINAL; WHITE BLOOD COUNT 8.6 TH/MM3 (4.0-11.0)
[2017-04-17] MEDS: METOPROLOL TARTRATE 25 MG TAB PO SCH (08:53)
[2017-04-17] MEDS: TICAGRELOR 90 MG TAB PO SCH (08:53)
[2017-04-17] MEDS: SODIUM CHLORIDE 0.9% FLUSH 10 ML FLUSH IV FLUSH SCH (08:54)
[2017-04-17] MEDS: ASPIRIN 81 MG CHEW TAB PO SCH (08:54)
[2017-04-17] MEDS ORDERED: LISINOPRIL 20 MG TAB PO SCH (09:00)
--- NOTE | 2017-04-17 11:35 | PD.CARD.PN ---
Subjective Subjective Remarks No events over night Doing well No chest pain/SOB Objective Medications Current Medications Medications (Trade) Dose Ordered Sig/Nelli Route Start Time Stop Time Status Last Admin (Nitrostat Sl) 0.4 mg Q5M PRN SL 04/14/17 20:45 04/14/17 21:15 (NS Flush) 2 ml UNSCH PRN IV FLUSH 04/14/17 21:45 (NS Flush) 2 ml BID IV FLUSH 04/15/17 09:00 04/17/17 08:54 (Narcan Inj) 0.4 mg UNSCH PRN IV PUSH 04/14/17 21:45 (Morphine Inj) 1 mg Q3H PRN IV PUSH 04/15/17 03:45 04/15/17 08:08 (Tylenol) 325 mg Q4H PRN PO 04/15/17 10:45 (Percocet 5-325 Mg) 1 tab Q4H PRN PO 04/15/17 10:45 (Percocet 10-325 Mg) 1 tab Q4H PRN PO 04/15/17 10:45 (Morphine Inj) 2 mg Q30M PRN IV PUSH 04/15/17 10:45 04/15/17 11:48 (Aspirin Chew) 81 mg DAILY PO 04/16/17 09:00 04/17/17 08:54 (Brilinta) 90 mg BID PO 04/16/17 09:00 04/17/17 08:53 (Atropine Inj) 0.5 mg UNSCH PRN IV PUSH 04/15/17 10:45 (Zofran Inj) 4 mg Q4H PRN IV PUSH 04/15/17 10:45 04/15/17 21:54 (Lopressor) 12.5 mg BID PO 04/15/17 21:00 04/17/17 08:53 (Lipitor) 80 mg HS PO 04/15/17 21:00 04/16/17 20:48 (Prinivil) 40 mg DAILY PO 04/17/17 09:00 04/17/17 08:54 Vital Signs / I&O Vital Signs Date Time Temp Pulse Resp B/P (MAP) Pulse Ox O2 Delivery O2 Flow Rate FiO2 04/17/17 10:00 74 04/17/17 09:00 96 04/17/17 08:00 90 04/17/17 07:45 97.8 70 16 137/65 (89) 99 04/17/17 07:00 77 04/17/17 06:00 68 04/17/17 05:00 70 04/17/17 04:00 62 04/17/17 03:30 97.9 67 18 118/66 (83) 98 04/17/17 03:00 64 04/17/17 02:00 64 04/17/17 01:00 107 04/17/17 00:00 67 04/16/17 23:20 98.1 75 18 134/72 (92) 96 04/16/17 23:00 69 04/16/17 22:00 70 04/16/17 21:00 90 04/16/17 20:30 98.2 93 18 131/69 (89) 97 04/16/17 20:00 82 04/16/17 19:35 21 04/16/17 19:00 96 04/16/17 18:00 74 04/16/17 17:00 68 04/16/17 16:00 98.0 88 18 124/68 (86) 96 04/16/17 16:00 68 04/16/17 15:00 72 04/16/17 14:00 84 04/16/17 13:00 81 04/16/17 12:00 88 I/O 04/16/17 04/16/17 04/16/17 04/17/17 04/17/17 04/17/17 07:00 15:00 23:00 07:00 15:00 23:00 Intake Total 740 ml 925 ml 240 ml Output Total 150 ml 1560 ml 1150 ml Balance 590 ml -635 ml -910 ml Intake Oral 240 ml 925 ml 240 ml IV Total 500 ml Output Urine Total 150 ml 1560 ml 1150 ml # Voids 2 # Bowel Movements 0 0 0 Physical Exam GENERAL: NAD, AAOx3 SKIN: Warm and dry. HEAD: Atraumatic. Normocephalic. EYES: Pupils equal and round. No scleral icterus. No injection or drainage. ENT: No nasal bleeding or discharge. Mucous membranes pink and moist. NECK: Trachea midline. No JVD. CARDIOVASCULAR: Regular rate and rhythm. No murmurs noted RESPIRATORY: No accessory muscle use. CTA bilaterally GASTROINTESTINAL: Abdomen soft, non-tender, nondistended. Hepatic and splenic margins not palpable. MUSCULOSKELETAL: Extremities without clubbing, cyanosis, or edema. No obvious deformities. Right radial no hematoma, neurovascularly intact distally. Right femoral no hematoma, pulses intact distally NEUROLOGICAL: Awake and alert. No obvious cranial nerve deficits. Motor grossly within normal limits. Five out of 5 muscle strength in the arms and legs. Normal speech. PSYCHIATRIC: Appropriate mood and affect; insight and judgment normal. Laboratory Laboratory Tests Test 04/17/17 05:13 White Blood Count 8.6 TH/MM3 Red Blood Count 3.73 MIL/MM3 Hemoglobin 11.6 GM/DL Hematocrit 32.9 % Mean Corpuscular Volume 88.3 FL Mean Corpuscular Hemoglobin 31.2 PG Mean Corpuscular Hemoglobin Concent 35.3 % Red Cell Distribution Width 12.7 % Platelet Count 231 TH/MM3 Mean Platelet Volume 8.4 FL Assessment and Plan Problem List: (1) NSTEMI (non-ST elevated myocardial infarction) ICD Codes: I21.4 - Non-ST elevation (NSTEMI) myocardial infarction Status: Acute (2) CAD (coronary artery disease) ICD Codes: I25.10 - Atherosclerotic heart disease of [place] coronary artery without angina pectoris Status: Acute (3) HTN (hypertension) ICD Codes: I10 - Essential (primary) hypertension Status: Acute Assessment and Plan 1) NSTEMI s/p BMS (2x15) to diagonal Residual 30-40% prox RCA disease Con't ASA/Brilinta/BB/Statin/DONIS-I 2) SOB Resolved 3) EF 55-60%, DD1, mild MR 4) HTN 5) Cardiovascularly stable for discharge Will see cardiology in [facility]. when back Discussed free 30 days of Brilinta, will check on prices of refills, if too expensive will call her PCP to change to Plavix Problem Qualifiers (1) CAD (coronary artery disease): Juan Frederick DO Apr 17, 2017 11:35
[2017-04-17] MEDS ORDERED: ATOR1TAB18 PO (13:08)
[2017-04-17] MEDS ORDERED: ASPI81CH25 PO (13:08)
[2017-04-17] MEDS ORDERED: METO25TA3 PO (13:08)
[2017-04-17] MEDS ORDERED: BRIL90TA PO (13:08)
--- NOTE | 2017-04-17 13:11 | HHI.DS ---
Discharge Summary Admission Date Apr 14, 2017 at 21:46 Discharge Date: Apr 17, 2017 Admitting Diagnosis NSTEMI (1) NSTEMI (non-ST elevated myocardial infarction) ICD Code: I21.4 - Non-ST elevation (NSTEMI) myocardial infarction Diagnosis: Principal Status: Acute (2) CAD (coronary artery disease) ICD Code: I25.10 - Atherosclerotic heart disease of [place] coronary artery without angina pectoris Diagnosis: Secondary Status: Chronic (3) HTN (hypertension) ICD Code: I10 - Essential (primary) hypertension Diagnosis: Principal Status: Chronic Procedures 04/17 Left heart catheterization, coronary angiogram, bare metal stent (2 x 15) to the diagonal, moderate sedation 60 minutes. Brief History - From Admission Obtained for many physician's history and physical. Patient presents emergency room with chest pains in the midsternal area which she's never had previously. She was given nitroglycerin ER states the pain was not really going away. She is currently visiting from [place]. She was transferred from the [facility] for cardiac intervention secondary to elevated troponins. CBC/BMP: 04/17/17 0513 04/16/17 0556 Significant Findings Laboratory Tests Test 04/14/17 19:20 04/14/17 20:47 04/15/17 00:37 04/15/17 03:23 Neutrophils (%) (Auto) 81.3 % (16.0-70.0) Neutrophils # (Auto) 8.4 TH/MM3 (1.8-7.7) Calcium Level 8.1 MG/DL (8.5-10.1) 8.2 MG/DL (8.5-10.1) Sodium Level 134 MEQ/L (136-145) 133 MEQ/L (136-145) Potassium Level 3.3 MEQ/L (3.5-5.1) Total Creatine Kinase 360 U/L (26-192) 486 U/L (26-192) Creatine Kinase MB 47.8 NG/ML (0.5-3.6) 63.0 NG/ML (0.5-3.6) Creatine Kinase MB % 13.3 % (0.0-4.0) 13.0 % (0.0-4.0) Troponin I 7.58 NG/ML (0.02-0.05) 12.20 NG/ML (0.02-0.05) White Blood Count 11.2 TH/MM3 (4.0-11.0) Activated Partial Thromboplast Time 30.3 SEC (24.3-30.1) 78.1 SEC (24.3-30.1) Random Glucose 117 MG/DL (74-106) Test 04/15/17 14:20 04/16/17 05:56 04/17/17 05:13 White Blood Count 11.3 TH/MM3 (4.0-11.0) Red Blood Count 3.91 MIL/MM3 (4.00-5.30) 3.72 MIL/MM3 (4.00-5.30) 3.73 MIL/MM3 (4.00-5.30) Hematocrit 34.8 % (35.0-46.0) 33.1 % (35.0-46.0) 32.9 % (35.0-46.0) Neutrophils (%) (Auto) 84.5 % (16.0-70.0) 77.6 % (16.0-70.0) Neutrophils # (Auto) 9.6 TH/MM3 (1.8-7.7) Activated Partial Thromboplast Time 39.9 SEC (24.3-30.1) Total Creatine Kinase 443 U/L (26-192) Creatine Kinase MB 51.1 NG/ML (0.5-3.6) Creatine Kinase MB % 11.5 % (0.0-4.0) Troponin I 12.90 NG/ML (0.02-0.05) Hemoglobin 11.2 GM/DL (11.6-15.3) Monocytes (%) (Auto) 8.2 % (0.0-8.0) Blood Urea Nitrogen 6 MG/DL (7-18) Creatinine 0.45 MG/DL (0.50-1.00) Calcium Level 7.9 MG/DL (8.5-10.1) Sodium Level 134 MEQ/L (136-145) Imaging Last Impressions Chest X-Ray 04/14/17 8954 Signed Impressions: Service Date/Time: Friday, April 14, 2017 18:59 - CONCLUSION: Possible mild medial right base consolidation. Sanju Lazar MD PE at Discharge GENERAL: This is a well-nourished, well-developed patient, in no apparent distress. CARDIOVASCULAR: Regular rate and rhythm without murmurs, gallops, or rubs. RESPIRATORY: Clear to auscultation. Breath sounds equal bilaterally. No wheezes , rales, or rhonchi. GASTROINTESTINAL: Abdomen soft, non-tender, nondistended. Normal active bowel sounds MUSCULOSKELETAL: Extremities without clubbing, cyanosis, or edema. NEURO: Alert & Oriented x4 to person, place, time, situation. Moves all ext x4 Pt update on day of discharge No complaint of chest pain. No shortness of pain. Wants to go home. Hospital Course 61-year-old white female was admitted for non-ST elevation myocardial infarction and was seen by visitor services specialist Otoniel who performed a cardiac catheterization with intervention in the diagonal proximal right CA. She was placed on aspirin and brilinta. Beta lashell and statin was also initiated during this hospitalization. She will remained stable after cardiac catheterization with no complications. At this time, patient has gained maximum benefit of hospitalization and ready to be discharged to home. Pt Condition on Discharge: Good Discharge Disposition: Discharge Home Discharge Time: <= 30 minutes Discharge Instructions DIET: Follow Instructions for: Heart Healthy Diet Activities you can perform: Regular-No Restrictions Follow up Referrals: Cardiology PCP Follow-up New Medications: Aspirin (Aspirin Low Strength) 81 Mg Chew 81 MG PO DAILY for Prevent Blood Clot, #30 EA Atorvastatin (Atorvastatin) 80 Mg Tab 80 MG PO HS for Cholesterol Management, #30 TAB Metoprolol Tartrate (Metoprolol Tartrate) 25 Mg Tab 12.5 MG PO BID for Regulate Heart Beat, #60 TAB Ticagrelor (Brilinta) 90 Mg Tab 90 MG PO BID for Prevent Blood Clot, #60 TAB 6 Refills Continued Medications: Hydrochlorothiazide (Hydrochlorothiazide) 12.5 Mg Tab 12.5 MG PO DAILY, #30 TAB 0 Refills Lisinopril (Lisinopril) 40 Mg Tab 40 MG PO DAILY for Blood Pressure Management, #30 TAB 0 Refills Additional Information Follow-up with Dr. Frederick, cardiology Patient returns to [place], follow with primary care physician and also cardiology. Kavitha Gallo MD Apr 17, 2017 13:11
--- NOTE | 2017-04-21 14:44 | CATHPROC ---
[employer] HIS Report Study Information Study Number Admission Scheduled Start Study Start [id number] Apr 14 2017 9:46PM 04/15/2017 Apr 15 2017 8:45AM [place] [facility] Cardiac Catheterization Admit Source Facility Department Other [facility] - Senior Scientist Physician and Clinical Staff Initial Juan Hui Multi Skilled Operator Apryl Frederick,BUFFY Recorder Obdulio Rutledge RN Scrub Phoebe Martinez,PAULINO TECH2 Procedures Performed Procedure Location (Site) Vessel Name Coronary Angiograms LCA Left Coronary Coronary Angiograms RCA Right Coronary PTCA DIAG1 Mid Left Coronary Stent DIAG1 Mid Left Coronary Wire insertion Fem Art (right) Femoral Art Equipment Time Fitness Teacher Description Size Mfg Part Number Used/Scraped [id number] 10:12 [employer] STENT, 2.0 15 MINI-VISION RX 2.0 15 Used *[id number] WIRE, BALANCE MIDDLEWEIGHT [id number] 09:55 [employer] 190CM Used 190CM *[id number] WIRE, BALANCE MIDDLEWEIGHT [id number] 09:55 [employer] 190CM Used 190CM *[id number] TRANSDUCER, TRUWAVE [id number] 09:01 HOFFMAN HAYWOOD * Used W/STOCKCOCK *[id number] 10:07 [employer] BALLOON, 1.5 8MM EMERGE MR 1.5 8MM Used *[id number] 10:07 [employer] BALLOON, 1.5 8MM EMERGE MR 1.5 8MM Used *[id number] [facility]-502-10.0- INTRODUCER SET, 09:37 [employer] FR 5 SC-NT-U-SST Used MICROPUNCTURE, STIFFENED *[id number] 534-520T *[id number] 09:01 [employer] INDUSTRIES PACK, CCL CUSTOM * Used *[id number] 09:01 [employer] Packers SUPPORT, ARTERIAL ADULT 35007 *[id number] Used BALLOON, 2.0 X 12MM NC [id number] 10:17 MEDTRONIC 12MM Used EUPHORA *[id number] BALLOON, 2.0 X 12MM NC [id number] 10:17 [employer] 12MM Used EUPHORA *[id number] 09:42 [employer] JR 4.0 DXTERITY CATHETER FR 5 [id number] Used [id number] 09:55 [employer]/AVE EBU 3.5 Z2 GUIDE CATHETER FR 6 Used *[id number] 10:08 [employer] MEDICAL 30 BIJU INDEFLATOR Used *[id number] PSI-6F-11- 09:54 [employer] MEDICAL SHEATH, FR6.5 PRELUDE 11CM FR 6.5 038ACT Used *[id number] [id number] 09:01 [employer] WIRE, EXCHANGE 260CM 3MMJ 260CM Used *[id number] [id number] 09:01 NAMIC MANIFOLD, 4 PORT * Used *0253607 09:01 [employer]COMED OMNIPAQUE, 350 MG, 150ML 150ML [id number] Used [id number] 09:01 [facility] BLANKET,WARM AIR CCL * Used *[id number] MRW425 09:37 [employer]UMO MEDICAL SHEATH, FR5 TERUMO (10CM) FR 5 Used *[id number] RAT885 09:55 [employer] MEDICAL SHEATH, FR6 TERUMO (10CM) FR 6 Used *[id number] SHEATH, FR6 TRANSRADIAL RM*[id number] 09:01 TERUMO MEDICAL FR 6 Used SLENDER 10CM *[id number] Equipment Model, Serial, Lot Number and Expiration Data Description Model Number Serial Number Lot Number Expiration Date INTRODUCER SET, [id number] 03-13-2020 MICROPUNCTURE, STIFFENED JR 4.0 DXTERITY CATHETER [id number] 01-08-2020 STENT, 2.0 15 MINI-VISION RX [id number] 11-10-2017 History: Current Medications Medication Dosage/Unit Route Frequency Last Date/Time Taken LISINOPRIL 40 mg Oral Daily HCTZ 12.5 mg Oral 1 Daily History: Allergies Allergy Reaction erythromycin base History: Risk Factors Family History of Hypertension Dyslipidemia Previous AR Previous Heart Failure Premature CAD Yes No No No No Prior Valve Prior PCI Prior CABG Surgery No No No Cerebrovascular Peripheral Artery Chronic Lung On Dialysis Diabetes Disease Disease Disease No No No No No History: Symptoms/Diagnosis Selection Items Chest pain History: Stress Tests Stress or Imaging Studies Performed No History: Other Current Smoker No Labs Hgb (g/dl) Hct (%) WBC (l/cumm) Platelets (thousands) 11.60-17.00 35.00-51.00 4.00-11.00 150.00-450.00 13.1 37.9 11.2 315 BUN (mg/dl) Creatinine (mg/dl) BUN:Creatinine (1:x) 7.00-18.00 0.50-1.30 10.00-20.00 8 0.5 16 Na (meq/l) K (meq/l) 136.00-145.00 3.50-5.10 133 3.5 INR (PTT:PT) 0.90-1.10 1 Troponin I (ng/ml) CPK (u/l) CPK-MB (ng/ML) 0.02-0.05 26.00-308.00 0.50-3.60 12.2 486 63.0 Medication Medication Total Dose (Bolus/Oral) Medication Total Dosage/Unit 1% XYLOCAINE 40 mL ASPIRIN 81 mg BRILINTA 180 mg FENTANYL 75 mcg HEPARIN 5200 units VERSED 0.5 mg Medications (Bolus/Oral) Medication Time Given Dosage/Unit Administered By Reason 1% XYLOCAINE 04/15/2017 9:27:57 AM 20 mL Juan Frederick Patient arrived on 20 mL 1% XYLOCAINE given by Juan Frederick in Right Radial via Subcutaneous. Or dered by Juan Frederick. VERSED 04/15/2017 9:28:44 AM 0.5 mg Apryl Frederick Patient arrived on 0.5 mg VERSED given by Apryl Frederick, BUFFY via Peripheral IV. Ordered by Juan Frederick. FENTANYL 04/15/2017 9:29:02 AM 25 mcg Apryl Frederick Patient arrived on 25 mcg FENTANYL given by Apryl Frederick, BUFFY via Peripheral IV. Ordered by Juan Weaver. 1% XYLOCAINE 04/15/2017 9:37:04 AM 20 mL Juan Frederick Patient arrived on 20 mL 1% XYLOCAINE given by Juan Frederick in Right Groin via Subcutaneous. Ord ered by Juan Frederick. HEPARIN 04/15/2017 9:49:15 AM 5200 units Juan Frederick Patient arrived on 5200 units HEPARIN given by Juan Frederick via Peripheral IV. Ordered by Juan Goodson. FENTANYL 04/15/2017 10:19:51 AM 50 mcg Apryl Frederick Patient arrived on 50 mcg FENTANYL given by Apryl Frederick, RN via Peripheral IV. Ordered by Juan Weaver. ASPIRIN 04/15/2017 10:37:04 AM 81 mg Apryl Frederick Patient arrived on 81 mg ASPIRIN given by Apryl Frederick RN via Subcutaneous. Ordered by Juan Frederick. BRILINTA 04/15/2017 10:37:13 AM 180 mg Apryl Frederick 180 mg BRILINTA given in lab by Apryl Frederick RN. Ordered by Juan Frederick. Medication (Drip) Medication Time Given Dosage/Unit Concentration/Unit Diluent (ml) Solution IV Solutions 04/15/2017 8:59:20 AM 0 mL (IV) NaCl .9 Patient arrived on IV Solutions in Left Antecubital via Peripheral IV. Pump/Drip Flow = 20 ml/hr usin g NaCl .9. Ordered by Juan Frederick. Initial Case Assessment Cardiovascular Chest Pain 7 Edema Present Skin color Skin None Normal Warm Dry Circulatory - Right Pulses Dorsalis Pedis Femoral 1 1 Scale (0,1,2,3,4,d) Circulatory - Left Pulses Dorsalis Pedis Femoral 1 1 Scale (0,1,2,3,4,d) Circulatory - Lower Extremities Color Lower Right Color Lower Left Normal Normal Neurological State Oriented to time-place- Alert Moves all extremities person Respiration - General Respiration Rate SpO2 (%) (B/min) 16 97 Chronological Log Time Study Chronological Log 8:57:46 Patient arrived via Bed. 8:57:47 Patient Name, D.O.B, / Armband Verified By R.N. 8:57:48 Consent signed by the physician and the patient and verified by the Senior Scientist staff. 8:57:49 Pre-op and post- op instructions given; patient acknowledges understanding of instructions. 8:57:50 Verbal Stimulation=2 Physical Stimulation=2 Airway=2 Respiration=2 TOTAL=8. (0=absent, 1=li mited, 2=present) 8:57:52 Allens test performed on the right radial and ulnar artery. 8:58:59 Patient has been NPO for More than 6Hrs. 8:59:11 Skin Breakdown- 8:59:13 Patient Warmer Placed on the Table. 8:59:19 A # 20 IV was noted in the Hand (right). Grade = 0 8:59:19 A # 20 IV was noted in the Antecubital (left). Grade = 0 Patient arrived on IV Solutions in Left Antecubital via Peripheral IV. Pump/Drip Flow = 20 ml/ hr using NaCl .9. Ordered 8:59:20 by Juan Frederick. 8:59:21 History and physical on the chart or being dictated. Assessment: Initial Case, Chest Pain=7, Edema=None, Color=Normal, Skin = Warm, Dry Right Pulses: Leo Ped=1, Femoral=1 Left Pulses: Leo Ped=1, Femoral=1 8:59:22 Lower Right Extremities: Color=Normal Lower Left Extremities: Color=Normal Neurological: State=Alert, Ox3, CANCINO Respiration: Resp=16 B/min, SpO2=97 % Vitals capture started with the following parameters, Patient=Adult, Interval=5 min, Initial Pre eeqpg=970 mmHg, 9:03:44 Deflation Rate=5 mmHg, Cuff placed on Right Arm 9:04:20 HR=88 bpm, LLTR=276/80 mmhg, SpO2=95.0 %, Resp=16 B/min, Pain=7, Jamie=10, Chowdhury=2 9:09:19 HR=77 bpm, PCWI=498/69 mmhg, SpO2=94.0 %, Resp=22 B/min, Pain=7, Jamie=10, Chowdhury=2 9:14:20 HR=81 bpm, KLQF=795/68 mmhg, SpO2=97.0 %, Resp=14 B/min, Pain=7, Jamie=10, Chowdhury=2 9:19:19 HR=77 bpm, EVZF=447/72 mmhg, SpO2=97.0 %, Resp=11 B/min, Pain=7, Jamie=10, Chowdhury=2 9:20:16 Pressure channel 1 zeroed. 9:20:43 Bilateral groins prepped with 2% chlorhexidine, and draped after a 3 minute waiting time. 9:24:22 HR=69 bpm, CCKF=808/60 mmhg, SpO2=98.0 %, Resp=20 B/min, Pain=7, Jamie=10, Chowdhury=2 9:26:24 Reference ECG taken Time Out. Correct patient, correct procedure, correct physician, power injector loaded, or not l oaded with contrast with 9:27:45 surgical team present. Time Out Concurred by MD and individual staff in procedure. 9:27:54 Case Start Patient arrived on 20 mL 1% XYLOCAINE given by Juan Frederick in Right Radial via Subcutaneou s. Ordered by 9:27:57 Juan Frederick. 9:28:44 Patient arrived on 0.5 mg VERSED given by Apryl Frederick, RN via Peripheral IV. Ordered by Juan Frederick. 9:29:02 Patient arrived on 25 mcg FENTANYL given by Apryl Frederick, RN via Peripheral IV. Ordered b y Juan Frederick. 9:29:21 HR=74 bpm, AISJ=383/58 mmhg, SpO2=98.0 %, Resp=19 B/min, Pain=7, Jamie=10, Chowdhury=2 9:34:22 HR=65 bpm, ZAAM=003/53 mmhg, SpO2=97.0 %, Resp=19 B/min, Pain=7, Jamie=10, Chowdhury=2 9:36:36 radial approach abandoned Patient arrived on 20 mL 1% XYLOCAINE given by Juan Frederick in Right Groin via Subcutaneous . Ordered by 9:37:04 Juan Frederikc. 9:39:58 HR=72 bpm, BQFR=109/56 mmhg, SpO2=99.0 %, Resp=20 B/min, Pain=7, Jamie=10, Chowdhury=2 9:40:10 A SHEATH, FR5 TERUMO (10CM) FR 5 was advanced into the Fem Art (right) using the Modified Se sykes technique. Recorded Pressure: Ao, HR=74, Condition=Condition 1 9:41:43 (Aorta) Ao 133/62/89 9:41:57 An injection in the Fem R. Com (R7) was made through the SHEATH, FR5 TERUMO (10CM) FR 5. A JR 4.0 DXTERITY CATHETER FR 5 was advanced over a wire. OMNIPAQUE, 350 MG, 150ML 150ML was use d for 9:42:13 injections. Recorded Pressure: LV, HR=71, Condition=Condition 1 9:43:45 (Left Ventricle) LV 114/3/17 Recorded Pressure: LV, Ao, HR=77, Condition=Condition 1 9:43:59 (Left Ventricle) LV 124/4/16, (Aorta) Ao 119/61/88 9:44:20 HR=77 bpm, JJPA=529/59 mmhg, SpO2=98.0 %, Resp=15 B/min, Pain=7, Jamie=10, Chowdhury=2 9:44:45 The RCA was injected and visualized at various angles. OMNIPAQUE, 350 MG, 150ML 150ML used. After removing the current catheter a JL 4.0 INFINITI CATHETER FR 5 was advanced over a WIRE, EX CHANGE 260CM 9:46:16 3MMJ 260CM. 9:46:37 The LCA was injected and visualized at various angles. OMNIPAQUE, 350 MG, 150ML 150ML used. 9:49:15 Patient arrived on 5200 units HEPARIN given by Juan Frederick via Peripheral IV. Ordered by Juan Frederick. 9:49:19 HR=82 bpm, OOYK=878/66 mmhg, SpO2=98.0 %, Resp=18 B/min, Pain=7, Jamie=10, Chowdhury=2 9:52:20 Catheter was removed A SHEATH, FR6.5 PRELUDE 11CM FR 6.5 was exchanged in the Fem Art (right). This was necessary in order to 9:53:24 accomodate a larger catheter. 9:54:20 HR=84 bpm, UNMX=779/68 mmhg, SpO2=98.0 %, Resp=9 B/min, Pain=7, Jamie=10, Chowdhury=2 9:59:21 HR=81 bpm, XNZY=473/67 mmhg, SpO2=97.0 %, Resp=17 B/min, Pain=7, Jamie=10, Chowdhury=2 After removing the current catheter a EBU 3.5 Z2 GUIDE CATHETER FR 6 was advanced over a WIRE, EXCHANGE 9:59:42 260CM 3MMJ 260CM. 10:00:11 The LCA was injected and visualized at various angles. OMNIPAQUE, 350 MG, 150ML 150ML used . 10:00:39 A WIRE, BALANCE MIDDLEWEIGHT 190CM 190CM was inserted via Fem Art (right). 10:02:33 Interventional wire has crossed the lesion 10:04:22 HR=82 bpm, LLJE=292/63 mmhg, SpO2=99.0 %, Resp=18 B/min, Pain=7, Jamie=10, Chowdhury=2 A BALLOON, 1.5 8MM EMERGE MR 1.5 8MM was inserted over WIRE, BALANCE MIDDLEWEIGHT 190CM 190CM v ia the 10:07:30 DIAG1 Mid. A BALLOON, 1.5 8MM EMERGE MR 1.5 8MM over a WIRE, BALANCE MIDDLEWEIGHT 190CM 190CM in the DIAG1 Mid 10:07:45 was inflated using a 30 BIJU INDEFLATOR at 6 biju for 20 sec. 10:09:02 ACT (Normal Range 90-180) = 298 10:09:21 HR=85 bpm, WDKX=382/66 mmhg, SpO2=97.0 %, Resp=19 B/min, Pain=7, Jamie=10, Chowdhury=2 A BALLOON, 1.5 8MM EMERGE MR 1.5 8MM over a WIRE, BALANCE MIDDLEWEIGHT 190CM 190CM in the DIAG1 Mid 10::02 was inflated using a 30 BIJU INDEFLATOR at 8 biju for 20 sec. 10:11:27 Balloon Removed. An STENT, 2.0 15 MINI-VISION RX 2.0 15 Bare Metal Stent was inserted through a EBU 3.5 Z2 GUIDE CATHETER FR 10:13:42 6 over a WIRE, BALANCE MIDDLEWEIGHT 190CM 190CM. 10:14:23 HR=88 bpm, YAIH=404/67 mmhg, SpO2=98.0 %, Resp=23 B/min, Pain=7, Jamie=10, Chowdhury=2 A STENT, 2.0 15 MINI-VISION RX 2.0 15 was deployed using a 30 BIJU INDEFLATOR at 9 atmospheres f or 28 seconds 10:14:57 in the DIAG1 Mid. 10:17:37 Delivery device removed A BALLOON, 2.0 X 12MM NC EUPHORA 12MM was inserted over WIRE, BALANCE MIDDLEWEIGHT 190CM 190CM via 10:17:42 the DIAG1 Mid. A BALLOON, 2.0 X 12MM NC EUPHORA 12MM over a WIRE, BALANCE MIDDLEWEIGHT 190CM 190CM in the DIAG 1 Mid 10:18:16 was inflated using a 30 BIJU INDEFLATOR at 12 biju for 8 sec. 10:19:24 HR=85 bpm, IHLC=860/69 mmhg, SpO2=98.0 %, Resp=19 B/min, Pain=7, Jamie=10, Chowdhury=2 10:19:51 Patient arrived on 50 mcg FENTANYL given by Apryl Frederick RN via Peripheral IV. Ordered by Juan Frederick. 10:21:37 Wire removed 10:22:44 Catheter was removed 10:24:25 HR=79 bpm, DKLN=175/58 mmhg, SpO2=99.0 %, Resp=10 B/min, Pain=7, Jamie=10, Chowdhury=2 10:25:27 Case End 10:25:31 Sheath(s) left in place, will be removed in Holding Area 10:25:34 In the Fem Art (right) the SHEATH, FR6.5 PRELUDE 11CM FR 6.[address] by Juan Goodson. 10:25:41 Sterile dressing applied to site 10:25:43 No case complications noted. 10:25:49 Bedside Report will be given. 10:27:16 Implantable Device card placed in patient's chart. 10:29:24 HR=78 bpm, LYUY=191/65 mmhg, SpO2=98.0 %, Resp=23 B/min 10:34:25 HR=74 bpm, DRUI=474/62 mmhg, SpO2=99.0 %, Resp=21 B/min, Pain=7, Jamie=10, Cohwdhury=2 10:37:04 Patient arrived on 81 mg ASPIRIN given by Apryl Frederick, RN via Subcutaneous. Ordered by Juan Frederick. 10:37:13 180 mg BRILINTA given in lab by Apryl Frederick, BUFFY. Ordered by Juan Frederick. 10:37:23 NITRO GTT OFF 10:38:01 Vitals capture stopped. End Study - Contrast Media Used In Study Contrast Total Opened (mL) Total Used (mL) Total Wasted (mL) Omnipaque 150 125 25 End Study - Maximum Contrast Load Max Contrast Load (mL) 749.1 End Study - Radiation Exposure Fluoro Time (minutes) 9.6 End Study - Patient Disposition Complications Transferred To Interventional Outcome No Telemetry Bed successful
== END 2017-04-17 14:55 | disposition home or self-care (01) | DRG 249 ==
LOC: PHED 17:41 → PHEDA 21:46 → HCPC 04-15 02:26
PROVIDERS: ADMIT Family Medicine; ATTEND Family Medicine
PROC: 02703DZ Dilation of Coronary Artery, One Artery with Intraluminal Device, Percutaneous Approach (ICD-10-PCS; 2017-04-15)
PROC: B2111ZZ Fluoroscopy of Multiple Coronary Arteries using Low Osmolar Contrast (ICD-10-PCS; 2017-04-15)
PROC: 4A023N7 Measurement of Cardiac Sampling and Pressure, Left Heart, Percutaneous Approach (ICD-10-PCS; principal; 2017-04-15 08:30)
DX: I21.4 Non-ST elevation (NSTEMI) myocardial infarction (principal); E87.70 Fluid overload, unspecified; I10 Essential (primary) hypertension; I25.10 Atherosclerotic heart disease of native coronary artery without angina pectoris; Z95.5 Presence of coronary angioplasty implant and graft
CPT/HCPCS: 71010; 80048; 80061; 82550; 82552; 84484; 85002; 85025; 85027; 85347; 85379; 85610; 85730; 92928; 93005; 93306; 93454; 99285; C1725; C1769; C1874; C1887; C1893; J1644; J1940; J2250; J2270; J2405; J3010; J7030; Q9967